=== PATIENT | female | born 1935 | race Two or more races ===

== ENCOUNTER 2017-12-27 12:30 | Emergency (ER) | payer SELFPAY ==
[~2017-12-27] VITALS: Ht 167.6 cm; Wt 70.0 kg
[2017-12-27] MEDS ORDERED: HYDR12.53 PO (14:28)
[2017-12-27] MEDS ORDERED: TELM20TA PO (14:28)
[2017-12-27] MEDS ORDERED: TIMO10TA PO (14:28)
[2017-12-27] MEDS ORDERED: ONDANSETRON ODT 4 MG ONE (15:47)
[2017-12-27] MEDS ORDERED: OXYcodone/APAP 5/325MG TABLET ONE (15:47)
[2017-12-27] MEDS ORDERED: OXYcodone/APAP 5/325MG TABLET PO ONE (16:00)
[2017-12-27] MEDS ORDERED: ONDANSETRON ODT 4 MG PO ONE (16:00)
[2017-12-27 17:05] VITALS: BP 145/89
== END 2017-12-27 17:28 | disposition home or self-care (01) ==
LOC: EDBD 12:30 → ED 17:08
DX: S32.592A Other specified fracture of left pubis, initial encounter for closed fracture (principal); I10 Essential (primary) hypertension; W18.30XA Fall on same level, unspecified, initial encounter; Y93.89 Activity, other specified; Y99.8 Other external cause status; Y92.009 Unspecified place in unspecified non-institutional (private) residence as the place of occurrence of the external cause
CPT/HCPCS: 72131; 72192; 99284; Q0162